=== PATIENT | female | born 1985 | race Caucasian/White ===

== ENCOUNTER 2022-05-28 09:40 | Outpatient (CLI) | payer SELFPAY ==
[2022-05-28 14:21] LABS: Cholesterol* 178 mg/dL (90-199); Glucose* 96 mg/dL (60-115)
[2022-05-28 14:22] LABS: HDL Cholesterol* 38 mg/dL (>=50); LDL Cholesterol Calculated 110 mg/dL (<100); Triglycerides* 150 mg/dL (40-149)
[2022-05-28 22:50] LABS: Vitamin D 25 Hydroxy* 35 ng/mL (30-80)
== END 2022-05-28 09:41 | disposition home or self-care (01) ==
PROVIDERS: PCP Nurse Practitioner Family; Visit Provider Nurse Practitioner Family
DX: Z01.419 Encounter for gynecological examination (general) (routine) without abnormal findings (principal); Z13.1 Encounter for screening for diabetes mellitus; Z13.21 Encounter for screening for nutritional disorder; Z13.6 Encounter for screening for cardiovascular disorders
CPT/HCPCS: 80061; 82306; 82947

== ENCOUNTER 2022-08-06 12:55 | Outpatient (CLI) | payer OTHER, SELFPAY ==
[2022-08-06 16:07] LABS: Strep A DNA Probe* NOT DETECTED (Not Detectd)
== END 2022-08-06 12:56 | disposition home or self-care (01) ==
LOC: KYNREF 12:55
PROVIDERS: PCP Nurse Practitioner Family; Visit Provider Nurse Practitioner Family
DX: J02.9 Acute pharyngitis, unspecified (principal)
CPT/HCPCS: 87651

== ENCOUNTER 2023-12-22 14:34 | Outpatient (CLI) | payer OTHER, SELFPAY ==
--- NOTE | 2023-12-22 14:30 | MR_ITS ---
[facility] [address] [facility] [address] Phone:?[phone] Fax:?[phone] Referring Physician Information: Vishnu Almodovar [address] [facility] [address] Phone:?[phone] Fax:?[phone] Patient:Umer Quinones D.O.B:?1985 Sex:?Female Phone:?[phone] [facility] MRN:?[id number] Exam Date:?12/22/2023 EXAM: MRI of the RIGHT KNEE, without contrast CLINICAL HISTORY: Sprain of medial collateral ligament. Concern for lateral meniscal tear and medial collateral ligament tear. History of previous right knee surgery. COMPARISONS: Plain radiographs 12/15/2023. TECHNICAL: MR sequences of the right knee: sagittals: PD, PDFS coronals: PD, STIR axials: PD, T2 FS CONTRAST: None SEDATION: None FINDINGS: Bones: No fracture, bone marrow contusion, or other suspicious bone marrow signal abnormality. Patellofemoral joint: Cartilage: There is diffuse grade I chondromalacia, slitlike delamination at the subchondral bone plate-cartilage interface, and suspected slitlike chondral fissuring over the medial patellar facet with slight associated subchondral cystic changes and mild central osteophyte formation. Retinacula: The medial and lateral retinacula are intact. Fat pads: The infrapatellar, quadriceps, and prefemoral fat pads are unremarkable. Knee joint: Effusion: Physiologic amount of joint fluid. Popliteal cyst: Small multilobulated popliteal cyst. Intra-articular bodies: None. Posteromedial corner: The semimembranosus and pes anserine tendons are intact. Medial compartment: Medial meniscus: Intact. Cartilage: Intact. Lateral compartment: Lateral meniscus: There is a 1.5 cm in length ill-defined free edge surfacing predominantly horizontal tear from the anterior horn/body junction through body of the lateral meniscus. There is also a longitudinal vertical tear of the peripheral one third of the posterior horn of the lateral meniscus best seen on sagittal images 11 and 12. There is also fraying and mucoid degeneration/ill- defined partial tearing of the posterior horn/posterior root junction of the lateral meniscus best seen on sagittal images 12 through 14. Cartilage: Single obliquely oriented partial-thickness slitlike chondral fissure over the weight-bearing portion of the medial femoral condyle best seen on coronal series 8 image 20 and extensive grade I to II chondromalacia over most of the lateral tibial plateau. Ligaments: Anterior cruciate ligament: Surgical changes status post anterior cruciate ligament reconstruction with an intact anterior cruciate ligament graft. Posterior cruciate ligament: Intact. Medial collateral ligament: Intact. Posterior oblique ligament: Intact. Fibular collateral ligament: Intact. Posterolateral corner: The distal biceps femoris tendon, iliotibial band, popliteus tendon, popliteus muscle, popliteofibular ligament, and arcuate ligament are intact. Extensor mechanism: Patellar tendon: Intact. Quadriceps tendon: Intact. IMPRESSION: 1. Surgical changes status post anterior cruciate ligament reconstruction with an intact anterior cruciate ligament graft. 2. 1.5 cm in length ill-defined free edge surfacing predominantly horizontal tear from the anterior horn/body junction through body of the lateral meniscus, longitudinal vertical tear of the peripheral one third of the posterior horn of the lateral meniscus, and fraying and mucoid degeneration/ill-defined partial tearing of the posterior horn/posterior root junction of the lateral meniscus. Correlate with surgical history and any available previous MRI of the right knee. 3. Diffuse grade I chondromalacia, slitlike delamination at the subchondral bone plate-cartilage interface, and suspected slitlike chondral fissuring over the medial patellar facet with slight associated subchondral cystic changes and mild central osteophyte formation. 4. Single obliquely oriented slitlike partial-thickness chondral fissure over the weight-bearing portion of the medial femoral condyle and extensive grade I to II chondromalacia over most of the lateral tibial plateau. 5. Small multilobulated popliteal cyst. 6. No medial meniscal tear of the right knee. RCB Electronically signed on 12/23/2023 2:39:00 PM by Nayan Cody M.D.
== END 2023-12-22 14:35 | disposition home or self-care (01) ==
LOC: MRI 14:36
PROVIDERS: PCP Nurse Practitioner Family; Visit Provider Physician Assistant Surgical
DX: S83.281A Other tear of lateral meniscus, current injury, right knee, initial encounter (principal); S83.411A Sprain of medial collateral ligament of right knee, initial encounter; M71.21 Synovial cyst of popliteal space [Baker], right knee; M94.261 Chondromalacia, right knee
CPT/HCPCS: 73721

== ENCOUNTER 2024-02-07 08:39 | Outpatient (RCR) | payer OTHER, SELFPAY | END 2024-05-29 07:35 | disposition home or self-care (01) | PROVIDERS: PCP Nurse Practitioner Family; Visit Provider Physician Assistant Surgical | DX: S83.411A Sprain of medial collateral ligament of right knee, initial encounter (principal); S83.281A Other tear of lateral meniscus, current injury, right knee, initial encounter; Z98.890 Other specified postprocedural states; M25.561 Pain in right knee; M62.81 Muscle weakness (generalized); Z51.89 Encounter for other specified aftercare | CPT/HCPCS: 97110; 97161 ==

== ENCOUNTER 2024-08-21 08:09 | Outpatient (CLI) | payer OTHER, SELFPAY ==
[2024-08-23 01:33] LABS: HPV Source Vaginal; HPV, High Risk by TMA Detected
[2024-08-23 12:44] LABS: HPV Genotype 16 by TMA Not Detected; HPV Genotype 18/45 by TMA Not Detected; HPVG Source Vaginal
== END 2024-08-21 08:10 | disposition home or self-care (01) ==
PROVIDERS: PCP Nurse Practitioner Family; Visit Provider Nurse Practitioner Family
DX: Z12.4 Encounter for screening for malignant neoplasm of cervix (principal); Z11.51 Encounter for screening for human papillomavirus (HPV); Z13.220 Encounter for screening for lipoid disorders; Z13.1 Encounter for screening for diabetes mellitus
CPT/HCPCS: 80061; 82947; 87624; 87625; 88141; 88142